=== PATIENT | male | born 1950 | race Caucasian/White ===

== ENCOUNTER 2017-05-30 07:09 | Day surgery (SDC) | payer OTHER ==
[~2017-05-30] VITALS: Ht 165.1 cm; Wt 81.6 kg
[2017-05-30 08:07] VITALS: BP 125/84
[2017-05-30 12:47] VITALS: BP 137/96
== END 2017-05-30 11:30 | disposition home or self-care (01) ==
LOC: GI 07:09 → OR 08:00 → GI 11:30
PROVIDERS: Internal Medicine Gastroenterology
PROC: 0DBK8ZZ Excision of Ascending Colon, Via Natural or Artificial Opening Endoscopic (ICD-10-PCS; principal; 2017-05-30 08:00)
PROC: 06LY4CC Occlusion of Hemorrhoidal Plexus with Extraluminal Device, Percutaneous Endoscopic Approach (ICD-10-PCS; 2017-05-30 08:00)
DX: K64.8 Other hemorrhoids (principal); D50.0 Iron deficiency anemia secondary to blood loss (chronic); D12.2 Benign neoplasm of ascending colon
CPT/HCPCS: 45378; 46221; J1200; J1610; J2250; J2310; J3010; J3490

== ENCOUNTER 2019-05-25 07:23 | Day surgery (SDC) | payer OTHER ==
[~2019-05-25] VITALS: Ht 162.6 cm; Wt 87.5 kg
[2019-05-25 08:27] VITALS: BP 165/92
[2019-05-25 15:13] VITALS: BP 148/60
== END 2019-05-25 12:35 | disposition home or self-care (01) ==
LOC: DS 07:23 → OR 10:00 → GI 10:00 → DS 12:35
DX: Z09 Encounter for follow-up examination after completed treatment for conditions other than malignant neoplasm (principal); D12.4 Benign neoplasm of descending colon; K64.8 Other hemorrhoids; K57.30 Diverticulosis of large intestine without perforation or abscess without bleeding; M47.816 Spondylosis without myelopathy or radiculopathy, lumbar region; K21.9 Gastro-esophageal reflux disease without esophagitis; I10 Essential (primary) hypertension; Z98.890 Other specified postprocedural states; Z86.010 Personal history of colon polyps; Z79.899 Other long term (current) drug therapy
CPT/HCPCS: 45378; J1200; J1610; J2250; J2310; J3010; J3490